=== PATIENT | male | born 1965 | race Caucasian/White ===

== ENCOUNTER → 2016-12-21 | Outpatient (CLI) | payer BC, OTHER ==
[~2016-12-21] MED LIST: AUGM875T28 PO; CLON0.2T PO; PRED20TA PO; PROAAER10; RANITAB PO
--- NOTE | 2016-12-21 17:01 | REP ---
Clinical: Streptococcal pharyngitis . Comparison: PA and lateral. Technique: PA and lateral. Findings: The mediastinum and cardiac silhouette are normal. The lung adame are clear and without acute consolidation, effusion, or pneumothorax. The skeletal structures are intact and normal. Impression: 1. No acute cardiopulmonary process. Signed by Mehul Pérez MD 12/21/2016 04:52 P
== END ==
LOC: M LRY 16:41
PROVIDERS: ATTEND Nurse Practitioner Family
DX: J02.0 Streptococcal pharyngitis (principal)

== ENCOUNTER 2016-12-25 02:28 | Emergency (ER) | payer BC, OTHER ==
[~2016-12-25] VITALS: Ht 170.2 cm; Wt 107.0 kg
[2016-12-25] MEDS ORDERED: PROAAER10 (02:43)
[2016-12-25] MEDS ORDERED: AUGM875T28 PO (02:43)
[2016-12-25] MEDS ORDERED: PRED20TA PO (02:43)
[2016-12-25] MEDS ORDERED: RANITAB PO (02:43)
[2016-12-25] MEDS ORDERED: cloNIDine 0.2 MG TAB PO ONE ×2 (05:00→06:15)
[2016-12-25 05:21] LABS: ANION GAP 9 MEQ/L (8-16); BLOOD UREA NITROGEN 25 MG/DL (7-18); CALCIUM LEVEL 8.4 MG/DL (8.5-10.1); CARBON DIOXIDE LEVEL 23 MEQ/L (21-32); CHLORIDE LEVEL 104 MEQ/L (98-107); CREATININE FOR GFR 1.28 MG/DL (0.70-1.30); GLOMERULAR FILTRATION RATE > 60.0 (>56); GLUCOSE, FASTING 157 MG/DL (70-105); POTASSIUM SERUM 4.9 MEQ/L (3.5-5.1); SODIUM LEVEL 136 MEQ/L (136-145)
[2016-12-25 06:08] VITALS: BP 167/106
[2016-12-25] MEDS ORDERED: CLON0.2T PO (06:13)
[2016-12-25] MEDS ORDERED: NS 500 ML IV ONE (06:45)
[2016-12-25 06:50] VITALS: BP 131/81
--- NOTE | 2016-12-25 08:25 | REP ---
PA and lateral chest: Comparison is 12/21/2016. The lung adame are clear. The cardiac size is normal The fady, mediastinum, and bony thorax are unremarkable. Impression: Negative PA and lateral chest. There is no interval change. Signed by Nitin Almonte MD 12/25/2016 08:15 A
== END 2016-12-25 06:56 | disposition home or self-care (01) ==
LOC: M ED 02:28
DX: I10 Essential (primary) hypertension (principal); Z79.899 Other long term (current) drug therapy

== ENCOUNTER → 2016-12-31 | Outpatient (REF) | payer OTHER ==
[2016-12-31 21:21] LABS: MEAN CORPUSCULAR HEMOGLOBIN 28.4 pg (27.0-33.0); MEAN CORPUSCULAR HGB CONC 32.6 g/dl (32.0-36.5); MEAN CORPUSCULAR VOLUME 87.2 fl (80.0-96.0); RED CELL DISTRIBUTION WIDTH 13.5 % (11.5-14.5); WHITE BLOOD COUNT 9.5 10^3/uL (4.0-10.0)
[2016-12-31 21:51] LABS: CHOLESTEROL LEVEL 217 MG/DL (<200); FREE T4 0.88 NG/DL (0.76-1.46); TRIGLYCERIDES LEVEL 497 MG/DL (<150)
== END ==
LOC: M SFHCLERA 16:30
PROVIDERS: ATTEND Family Medicine
DX: R06.02 Shortness of breath (principal); R03.0 Elevated blood-pressure reading, without diagnosis of hypertension

== ENCOUNTER 2017-04-11 11:03 | Day surgery (SDC) | payer BC, OTHER ==
[2017-04-11] MEDS: NS 1,000 ML IV (11:45)
[2017-04-11] MEDS ORDERED: PROPOFOL 200 MG/20 ML VIAL As Ordered (13:04)
== END 2017-04-11 14:20 | disposition home or self-care (01) ==
LOC: M OPP 11:03
DX: Z12.11 Encounter for screening for malignant neoplasm of colon (principal); D12.2 Benign neoplasm of ascending colon; D12.5 Benign neoplasm of sigmoid colon; K62.1 Rectal polyp; K64.8 Other hemorrhoids; K57.30 Diverticulosis of large intestine without perforation or abscess without bleeding; I10 Essential (primary) hypertension; E78.5 Hyperlipidemia, unspecified; K21.9 Gastro-esophageal reflux disease without esophagitis; R06.02 Shortness of breath; R06.83 Snoring; Z79.82 Long term (current) use of aspirin; Z79.899 Other long term (current) drug therapy; Z85.118 Personal history of other malignant neoplasm of bronchus and lung
CPT/HCPCS: 45385

== ENCOUNTER → 2017-07-23 | Outpatient (CLI) | payer BC, OTHER | LOC: M RAD 15:33 | DX: H90.6 Mixed conductive and sensorineural hearing loss, bilateral (principal); R91.8 Other nonspecific abnormal finding of lung field | CPT/HCPCS: 70480 ==

== ENCOUNTER → 2017-09-25 | Outpatient (REF) | payer OTHER ==
[2017-09-25 16:32] LABS: HEMATOCRIT 48.4 % (42.0-52.0); HEMOGLOBIN 15.8 g/dl (13.5-17.5); MEAN CORPUSCULAR HEMOGLOBIN 28.8 pg (27.0-33.0); MEAN CORPUSCULAR HGB CONC 32.6 g/dl (32.0-36.5); MEAN CORPUSCULAR VOLUME 88.3 fl (80.0-96.0); PLATELET COUNT, AUTOMATED 232 10^3/uL (150-450); RED BLOOD COUNT 5.48 10^6/uL (4.30-6.10); RED CELL DISTRIBUTION WIDTH 13.6 % (11.5-14.5); WHITE BLOOD COUNT 8.2 10^3/uL (4.0-10.0)
[2017-09-25 16:47] LABS: ESTIMATED AVERAGE GLUCOSE 134 MG/DL (60-110); HEMOGLOBIN A1c 6.3 %
[2017-09-25 16:50] LABS: CHOLESTEROL LEVEL 160 MG/DL (<200); CHOLESTEROL RISK RATIO 4.705 (<5); HDL CHOLESTEROL 34 MG/DL (>40); LDL CHOLESTEROL 57.8 MG/DL (<100); NON-HDL-C 126 MG/DL; TRIGLYCERIDES LEVEL 341 MG/DL (<150)
== END ==
LOC: M SFHCLERA 11:34
DX: R73.01 Impaired fasting glucose (principal); E78.00 Pure hypercholesterolemia, unspecified; R06.09 Other forms of dyspnea

== ENCOUNTER → 2018-06-11 | Outpatient (REF) | payer OTHER ==
[~2018-06-11] MED LIST changes: +ASPI1TAB PO; +LOVA20TA2 PO; +METO25TA4 PO
[2018-06-11 12:53] LABS: HEMOGLOBIN A1c 6.3 %
[2018-06-11 13:20] LABS: ALBUMIN 4.1 GM/DL (3.2-5.2); BILIRUBIN,TOTAL 0.6 MG/DL (0.2-1.0); CALCIUM LEVEL 8.9 MG/DL (8.5-10.1); CREATININE FOR GFR 1.35 MG/DL (0.70-1.30); GLOMERULAR FILTRATION RATE 58.9 (>56); POTASSIUM SERUM 4.3 MEQ/L (3.5-5.1); TOTAL PROTEIN 7.4 GM/DL (6.4-8.2)
== END ==
LOC: M SFHCLERA 09:15
PROVIDERS: ATTEND Family Medicine
DX: I10 Essential (primary) hypertension (principal); R73.01 Impaired fasting glucose; E78.00 Pure hypercholesterolemia, unspecified

== ENCOUNTER → 2018-08-11 | Outpatient (REF) | payer OTHER ==
[~2018-08-11] MED LIST changes: -ASPI1TAB PO; +ASPI81TA26 PO
[2018-08-11 11:39] LABS: APPEARANCE, URINE HAZY (CLEAR); BACTERIA, URINE AUTO NEGATIVE (NEGATIVE); BILIRUBIN, URINE AUTO NEGATIVE (NEGATIVE); BLOOD, URINE BLOOD NEGATIVE (NEGATIVE); CALCIUM OXALATE CRYSTALS SMALL; COLOR, URINE YELLOW (YELLOW); GLUCOSE, URINE (UA) AUTO NEGATIVE (NEGATIVE); KETONE, URINE AUTO NEGATIVE (NEGATIVE); LEUKOCYTE ESTERASE, URINE AUTO NEGATIVE (NEGATIVE); MUCUS, URINE SMALL (NEGATIVE); NITRITE, URINE AUTO NEGATIVE (NEGATIVE); PROTEIN, URINE AUTO NEGATIVE (NEGATIVE); RBC, URINE AUTO 0 /HPF (0-3); SPECIFIC GRAVITY URINE AUTO 1.027 (1.002-1.035); SQUAMOUS EPITHELIAL CELL UR AU 0 /HPF (0-6); UROBILINOGEN, URINE AUTO 0.2 mg/dL (0.0-2.0); WBC, URINE AUTO 0 /HPF (0-3)
[2018-08-11 11:41] LABS: CALCIUM LEVEL 9.2 MG/DL (8.5-10.1); CREATININE FOR GFR 1.36 MG/DL (0.70-1.30); GLOMERULAR FILTRATION RATE 58.4 (>56); POTASSIUM SERUM 4.7 MEQ/L (3.5-5.1)
== END ==
LOC: M SFHCLERA 08:14
PROVIDERS: ATTEND Family Medicine
DX: R79.89 Other specified abnormal findings of blood chemistry (principal)

== ENCOUNTER → 2018-08-14 | Outpatient (CLI) | payer BC, OTHER ==
--- NOTE | 2018-08-14 20:19 | REP ---
CT abdomen and pelvis without IV or oral contrast: History: Elevated serum creatinine. Left-sided flank pain. Rule out nephrolithiasis. Findings: Preliminary digital leasing property manager radiograph shows a normal bowel gas pattern. There is a 5 mm noncalcified pulmonary nodule in the left lower lobe on page 7 of 48 in series 204 of today's study. There is linear fibrosis in the lingula and in the right middle lobe. The nodule merits follow-up. There is mild fatty infiltration of the liver. No adrenal lesion is seen. No pancreatic or gallbladder abnormality is observed. There is no evidence of intrarenal calculus. There are small parapelvic cysts bilaterally. There is a cortical cyst in the upper pole of the left kidney measuring 2.1 cm in greatest diameter. No bladder calculus is seen. There are one or two dystrophic calcifications in the prostate gland. Seminal vesicles are unremarkable. There is pancolonic diverticulosis without CT evidence of diverticulitis. A normal appendix is seen. No retroperitoneal mass or adenopathy is seen. No abdominal wall defect is seen. Bone window settings show no bony destructive lesion. Impression: Small parapelvic and renal cortical cysts bilaterally. No hydronephrosis or calculus disease is seen in either kidney. Pancolonic diverticulosis. Dystrophic prostate calcifications. There is a 5 mm noncalcified pulmonary nodule in the left lower lobe. Consider chest CT for further evaluation. Followup may be warranted. Electronically Signed by Justin Sellers MD 08/14/2018 08:35 P
== END ==
LOC: M RAD 17:31
PROVIDERS: ATTEND Family Medicine
DX: N28.1 Cyst of kidney, acquired (principal); K57.90 Diverticulosis of intestine, part unspecified, without perforation or abscess without bleeding; N40.2 Nodular prostate without lower urinary tract symptoms; R91.1 Solitary pulmonary nodule

== ENCOUNTER → 2018-08-26 | Outpatient (REF) | payer OTHER ==
[2018-08-26 20:30] LABS: CALCIUM LEVEL 9.3 MG/DL (8.5-10.1); CREATININE FOR GFR 1.4 MG/DL (0.70-1.30); GLOMERULAR FILTRATION RATE 56.4 (>56); POTASSIUM SERUM 4.6 MEQ/L (3.5-5.1)
== END ==
LOC: M SFHCLERA 15:10
PROVIDERS: ATTEND Family Medicine
DX: R79.89 Other specified abnormal findings of blood chemistry (principal)

== ENCOUNTER → 2018-09-07 | Outpatient (CLI) | payer BC, OTHER ==
[~2018-09-07] MED LIST changes: +ISOVUE-370 76% 100ML VIAL (Q9967) As Ordered ONE
--- NOTE | 2018-09-08 08:49 | REP ---
Clinical: Left lower lobe pulmonary nodule. Technique: Axial contrast enhanced images from the lung bases to the thoracic inlet with coronal and sagittal re-formations using 100 ml Isovue 370 intravenous contrast material. Comparison: Abdominal CT dated 08/14/2018. Findings: 5 mm noncalcified nodule in the posterior left lower lobe (image 59) is again identified and unchanged. The lung adame are otherwise well aerated and essentially clear. No further consolidation, nodule or mass lesion appreciated. No pleural effusion. No pneumothorax. Tracheobronchial tree is patent. No mediastinal, hilar or axillary adenopathy is appreciated. The mediastinum demonstrates normal thoracic aorta, pulmonary vasculature and heart/pericardium. Mild atherosclerotic changes to the coronary arteries suggested. No pericardial effusion. Musculoskeletal structures are intact. Impression: Solitary 5 mm noncalcified nodule in the left lower lobe. No further acute mediastinal or pleuroparenchymal process appreciated. Consider 1 year follow-up. Electronically Signed by Mehul Pérez MD 09/08/2018 08:40 A
== END ==
LOC: M RAD 16:03
PROVIDERS: ATTEND Family Medicine
DX: R91.1 Solitary pulmonary nodule (principal)
CPT/HCPCS: 71260; Q9967

== ENCOUNTER → 2018-12-02 | Outpatient (CLI) | payer BC, OTHER ==
[~2018-12-02] MED LIST changes: -ISOVUE-370 76% 100ML VIAL (Q9967) As Ordered ONE
--- NOTE | 2018-12-10 13:58 | REP ---
Right elbow for views: On one oblique view at the base of the ulnar coronoid process. This could represent a fracture or an unfused coronoid process. There is no joint effusion or hemarthrosis. Mineralization and joint spaces otherwise are unremarkable. There are no calcifications or foreign bodies. Impression: Fracture at the base of the ulnar coronoid process on one-view versus nonfused coronoid process. Correlate with clinical point tenderness. There is no hemarthrosis. Otherwise, negative right elbow. Electronically Signed by Nitin Almonte MD 12/02/2018 12:03 P
--- NOTE | 2018-12-10 14:01 | REP ---
Right arm for views : There is no fracture or dislocation. Mineralization and joint spaces are normal. There are no calcifications or foreign bodies. Impression: Negative right arm Please refer to the elbow series concerning the proximal ulna coronoid process . Electronically Signed by Nitin Almonte MD 12/02/2018 12:05 P
--- NOTE | 2018-12-10 14:04 | REP ---
Right wrist four views: There is internal fixation of the index finger metacarpal and at the base of the thumb metacarpal. There is no acute fracture or dislocation. Mineralization and joint spaces are normal. Impression: Internal fixation, otherwise negative right wrist. Electronically Signed by Nitin Almonte MD 12/02/2018 12:06 P
== END ==
LOC: M LRY 11:28
PROVIDERS: ATTEND Nurse Practitioner Family
DX: M25.521 Pain in right elbow (principal); S59.911A Unspecified injury of right forearm, initial encounter; S69.91XA Unspecified injury of right wrist, hand and finger(s), initial encounter; X58.XXXA Exposure to other specified factors, initial encounter; Y92.89 Other specified places as the place of occurrence of the external cause

== ENCOUNTER → 2018-12-02 | Outpatient (CLI) | payer OTHER | LOC: M LRY 11:24 | PROVIDERS: ATTEND Nurse Practitioner Family | DX: Z53.9 Procedure and treatment not carried out, unspecified reason (principal); M25.521 Pain in right elbow; S59.911A Unspecified injury of right forearm, initial encounter; S69.91XA Unspecified injury of right wrist, hand and finger(s), initial encounter ==

== ENCOUNTER → 2018-12-14 | Outpatient (REF) | payer OTHER ==
[2018-12-14 12:44] LABS: BLOOD UREA NITROGEN 18 MG/DL (7-18); CALCIUM LEVEL 9.1 MG/DL (8.5-10.1); CARBON DIOXIDE LEVEL 27 MEQ/L (21-32); CHLORIDE LEVEL 109 MEQ/L (98-107); CREATININE FOR GFR 1.27 MG/DL (0.70-1.30); GLOMERULAR FILTRATION RATE > 60.0 (>56); GLUCOSE, FASTING 122 MG/DL (70-100); POTASSIUM SERUM 4.7 MEQ/L (3.5-5.1); SODIUM LEVEL 141 MEQ/L (136-145)
[2018-12-14 13:03] LABS: HEMOGLOBIN A1c 6.2 %
[2018-12-14 13:32] LABS: MAU/CREAT RATIO 16.1 MCG/MG (0.0-30.0)
== END ==
LOC: M SFHCLERA 08:33
PROVIDERS: ATTEND Family Medicine
DX: R73.01 Impaired fasting glucose (principal); R79.89 Other specified abnormal findings of blood chemistry

== ENCOUNTER → 2018-12-17 | Outpatient (CLI) | payer BC, OTHER ==
[~2018-12-17] MED LIST changes: +LISI10TA15 PO; +NAPR-885 PO; +ZANT150T40 PO
--- NOTE | 2018-12-17 11:16 | REP ---
MRI RIGHT ELBOW WITHOUT CONTRAST: HISTORY: Pain in the right elbow. Comparison radiographs December 02, 2018. TECHNIQUE: Axial, coronal and sagittal imaging planes were utilized. T1- and T2-weighted scans were obtained with and without fat saturation in the usual fashion. MRI FINDINGS: Cortical and medullary bone signal intensity are normal. There is no evidence of acute fracture. There is an accessory ossicle or old nondisplaced and well corticated fracture fragment at the coronoid process of the proximal ulna as seen on the radiographs. This does not appear to be an acute injury. However, there is complete disruption of the biceps tendon with retraction of the tendon approximately 2.3 cm from its distal attachment on the radial styloid. There is considerable surrounding edema. The brachialis tendon appears to be intact. Medial and lateral collateral ligaments appear intact. There is no evidence of significant elbow joint effusion. Triceps tendon is unremarkable. IMPRESSION: 1. Complete distal biceps tendon tear with approximately 2.3 cm of tendon retraction. 2. Accessory ossicle versus old corticated chip fracture of the coronoid process. No acute bony injury seen. Electronically Signed by Justin Sellers MD 12/17/2018 01:00 P
== END ==
LOC: M RAD 09:21
PROVIDERS: ATTEND Orthopaedic Surgery Sports Medicine
DX: S46.211A Strain of muscle, fascia and tendon of other parts of biceps, right arm, initial encounter (principal); S59.901A Unspecified injury of right elbow, initial encounter; Y92.9 Unspecified place or not applicable; Y93.9 Activity, unspecified

== ENCOUNTER → 2018-12-23 | Outpatient (CLI) | payer BC, OTHER ==
[2018-12-23 11:49] LABS: HEMATOCRIT 48.1 % (42.0-52.0); HEMOGLOBIN 16.2 g/dl (13.5-17.5); MEAN CORPUSCULAR HGB CONC 33.7 g/dl (32.0-36.5); MEAN CORPUSCULAR VOLUME 89.1 fl (80.0-96.0); PLATELET COUNT, AUTOMATED 221 10^3/uL (150-450); WHITE BLOOD COUNT 7.6 10^3/uL (4.0-10.0)
[2018-12-23 11:59] LABS: INR 0.97; PROTHROMBIN TIME 12.6 SECONDS (11.8-14.0)
[2018-12-23 12:12] LABS: POTASSIUM SERUM 4.6 MEQ/L (3.5-5.1)
== END ==
LOC: M LAB 10:44
PROVIDERS: ATTEND Orthopaedic Surgery Sports Medicine
DX: M25.521 Pain in right elbow (principal)

== ENCOUNTER 2018-12-25 07:05 | Day surgery (SDC) | payer BC, OTHER ==
[~2018-12-25] VITALS: Ht 172.7 cm; Wt 108.9 kg
[~2018-12-25 07:05] MED LIST changes: +LIDOCAINE 1% MDV 20ML VIAL SQ PRN; +LR 1,000 ML IV ONE; +ceFAZolin SOD 2 GM in IV 1 EA IV ONE
[2018-12-25] MEDS ORDERED: fentaNYL 100 MCG/2 ML INJECTION (J3010) As Ordered ONE ×2 (07:52→08:51)
[2018-12-25] MEDS ORDERED: MIDAZOLAM INJ 2 MG/2 ML VIAL (J2250) As Ordered ONE (07:52)
[2018-12-25] MEDS ORDERED: dexameTHASONE 4 MG/ML 1ML VIAL (J1100) As Ordered ONE (08:51)
[2018-12-25] MEDS ORDERED: ONDANSETRON 4MG/2ML VIAL (J2405) As Ordered ONE (08:51)
[2018-12-25] MEDS ORDERED: LIDOCAINE 2% INJ 100 MG/5 ML SDV (FOR ANES.) As Ordered ONE (08:51)
[2018-12-25] MEDS ORDERED: PROPOFOL 200 MG/20 ML VIAL As Ordered ONE (08:51)
[2018-12-25] MEDS ORDERED: BUPIVACAINE/EPIN 0.25% 30 ML VIAL As Ordered ONE (09:44)
[2018-12-25] MEDS: fentaNYL 100 MCG/2 ML INJECTION (J3010) IV SCH ×2 (09:49→09:51)
[2018-12-25] MEDS ORDERED: MIDAZOLAM INJ 2 MG/2 ML VIAL (J2250) IV ONE (10:30)
[2018-12-25] MEDS ORDERED: ePHEDrine SULFATE 25 MG/5 ML(5MG/ML) SYRINGE As Ordered ONE ×2 (10:35→11:39)
[2018-12-25] MEDS ORDERED: ROCURONIUM BROMIDE 50 MG/5 ML VIAL As Ordered ONE (10:35)
[2018-12-25] MEDS ORDERED: KETOROLAC 60 MG/2 ML VIAL (J1885) As Ordered ONE (11:05)
[2018-12-25] MEDS ORDERED: SUGAMMADEX SODIUM 500 MG/5 ML VIAL (BRIDION) As Ordered ONE (11:29)
[2018-12-25] MEDS ORDERED: ONDANSETRON 4MG/2ML VIAL (J2405) IV PRN (12:15)
[2018-12-25] MEDS ORDERED: LR 1,000 ML IV SCH ×2 (12:15)
[2018-12-25] MEDS ORDERED: PERCOCET 5MG/325MG TAB PO PRN (12:15)
[2018-12-25] MEDS ORDERED: fentaNYL 100 MCG/2 ML INJECTION (J3010) IV PRN (12:15)
[2018-12-25 13:50] VITALS: BP 129/69
--- NOTE | 2018-12-26 10:50 | ECGEPIP ---
[facility] Test Date: 2018-12-25 Pat Name: RICHAR PRADHAN Department: Room: - Gender: Male Manager Brand: [id number] : [id number] Requested By: Aj Albert Order Number: [id number] Reading MD: Artur Alegria Measurements Intervals [place] Rate: 59 P: 46 DC: 146 QRS: 1 QRSD: 80 T: 9 QT: 387 QTc: 383 Interpretive Statements SINUS BRADYCARDIA Comparison tracing not on file Electronically Signed on 12-26-2018 10:49:46 EDT by Artur Alegria
--- NOTE | 2018-12-28 14:57 | RO ---
DATE OF PROCEDURE: 12/25/2018 PREOPERATIVE DIAGNOSIS: Right distal biceps tear. POSTOPERATIVE DIAGNOSIS: Right distal biceps tear. PLANNED PROCEDURE: Right distal biceps repair. PROCEDURE PERFORMED: Right distal biceps repair. OPERATIVE SURGEON: Dr. Kulwant Moreno DUMP GRADER: Kemar Sanchez MD ANESTHESIA: General anesthetic plus block. OPERATIVE PREAMBLE: This 53-year-old man had a right distal biceps tendon tear. He was lifting a heavy box. This was confirmed on clinical exam and MRI. He was sent to me already 2 weeks out. I expedited his MRI and surgery. We talked about the pros and cons, risks, and benefits of going ahead with right distal biceps tendon repair, single incision technique. I reiterated these risks in preoperative holding and marked the right upper extremity. He wished to proceed. DESCRIPTION OF PROCEDURE: Patient was administered a preoperative block in preoperative holding. Patient was brought to the operating theater, placed supine on the operating room table, and turned to the right side. General anesthesia was induced. 2 grams IV Ancef was administered. Right upper extremity was prepped and draped in the usual sterile fashion. Prep solution was allowed to thoroughly dry. Preoperative time-out was performed to confirm the patient, the site, and the surgery. The limb was exsanguinated with a sterile 4-inch Esmarch bandage. Limb was elevated. Sterile tourniquet was applied to the right upper extremity. This was inflated to 250 mmHg. I began by infiltrating 10 mL 0.25% Marcaine with 1:100,000 epinephrine in a transverse fashion over the proximal aspect of the volar forearm. This was 2 cm distal to the elbow crease. I then made a 2-inch incision transversely through the same area. I dissected down through skin and subcutaneous tissue. I identified the biceps tendon. It was scarred down. Mobilization of the tendon took about 20 minutes. It had only retracted about 2 cm but was quite scarred down already. Tendon then was cleaned of any scar tissue and hypertrophic tendon. I then used the straight needle FiberLoop whipstitch technique Arthrex kit to place six whipstitches in the tendon end. The last whipstitch was proximally locked and brought out through the middle of the tendon end. Straight needle was cut off. Ends of the suture were then passed through the distal biceps button in the usual fashion for a later tension slide technique. I then turned my attention distally. Using the previously made tunnel, I placed a Hohmann's and then used [place] retractors to visualize down to the radial tuberosity. I cleared this away of any soft tissue and remaining small amounts of tendon attachment. I half re-supinated the arm. Identified the tuberosity. I passed the spade tip guidepin bicortically at this point with the arm slightly flex and in as much supination as was possible. Tendon measured approximately 8 mm. This was after fashioning the distal end of the tendon into a more bullet-shaped tip. I then overdrilled the proximal cortex with a #8 mm drill. It was thoroughly irrigated of all bone dust and suctioned away. Biceps button was then passed bicortically to far cortex and flipped. Using the tension slide technique, the tendon was delivered into the hole appropriately with the arm in about 30 degrees of flexion. It went in nicely and docked into the tunnel quite easily. I then used the 7 mm x 10 mm Arthrex interference screw and seated this appropriately. Suture ends were then passed using a free Sutherland needle up through the tendon and tied over top for a triple fixation. Suture ends were cut short with a scalpel to avoid any fraying of the suture ends. Tendon repair quality was good. The wound was thoroughly irrigated. Subcutaneous tissue was closed with interrupted #3-0 Vicryl sutures and skin with running #4-0 Monocryl. Skin was cleaned with wet and dry dressing followed by application of Steri-Strips, Adaptic, 4 x 8 gauze, and ABD dressings overwrapped with sterile 6-inch Clark bandage. He was then placed into a hinged elbow brace locked at 90 degrees with a sling. Tourniquet was taken down prior to the end of the case, and wound was dry. Estimated blood loss was 10 mL. All sponge, needle, and instrument counts were correct at the end of the case. No complications. The patient was woken up from the general anesthetic, transferred off the operating table, and taken to the postanesthetic care unit in stable condition. PLAN: For the patient to be discharged home according to day surgery criteria. Prescription has been sent in electronically to their pharmacy of choice. Followup in my office in 1-2 weeks or earlier if there are any concerns.
== END 2018-12-25 13:55 | disposition home or self-care (01) ==
LOC: M SDC 07:05
PROVIDERS: ATTEND Orthopaedic Surgery Sports Medicine
DX: S46.211A Strain of muscle, fascia and tendon of other parts of biceps, right arm, initial encounter (principal); Y92.89 Other specified places as the place of occurrence of the external cause; Y93.9 Activity, unspecified; Y99.9 Unspecified external cause status; I10 Essential (primary) hypertension; E78.5 Hyperlipidemia, unspecified; K21.9 Gastro-esophageal reflux disease without esophagitis; F17.220 Nicotine dependence, chewing tobacco, uncomplicated; Z79.82 Long term (current) use of aspirin; Z79.899 Other long term (current) drug therapy
CPT/HCPCS: 24342; 64415; 93005; C1713; J0690; J1100; J1885; J2250; J2405; J3010

== ENCOUNTER → 2021-01-16 | Outpatient (CLI) | payer BC, OTHER ==
[~2021-01-16] MED LIST changes: +ISOVUE-370 76% 100ML VIAL As Ordered ONE; -LIDOCAINE 1% MDV 20ML VIAL SQ PRN; -LR 1,000 ML IV ONE; -ceFAZolin SOD 2 GM in IV 1 EA IV ONE
--- NOTE | 2021-01-16 15:19 | REP ---
INDICATION: LUNG NODULE COMPARISON: 09/07/2018 the latest prior TECHNIQUE: Standard helical technique after the intravenous administration of 100 cc Isovue 370. FINDINGS: The mediastinum and pulmonary fady are again seen to be within normal limits and unchanged. The imaged upper abdomen is stable. There is a simple left renal cyst status quo. The imaged osseous structures are stable and intact. Evaluation of the lung adame shows the left lower lobe nodule seen previously to of completely calcified. No new abnormal nodules, masses, or opacities have developed. IMPRESSION: There is a benign calcified granuloma in the left lower lobe. There is no evidence of acute disease. Findings as described above. <Electronically signed by Cristopher Martines > 01/16/21 1731
== END ==
LOC: M RAD 14:22
PROVIDERS: ATTEND Family Medicine
DX: R91.1 Solitary pulmonary nodule (principal)
CPT/HCPCS: 71260; Q9967

== ENCOUNTER → 2021-05-05 | Outpatient (CLI) | payer BC, OTHER ==
[~2021-05-05] MED LIST changes: +FAMO10TA50 PO; -ISOVUE-370 76% 100ML VIAL As Ordered ONE; -LISI10TA15 PO; +LISI10TA22 PO; +LISI10TA24 PO; +METO50TA7 PO
== END ==
LOC: M LABSMTC 10:23
PROVIDERS: ATTEND Anesthesiology
DX: Z01.812 Encounter for preprocedural laboratory examination (principal); Z11.52 Encounter for screening for COVID-19

== ENCOUNTER 2021-05-10 07:48 | Day surgery (SDC) | payer BC, OTHER ==
[~2021-05-10] VITALS: Ht 170.2 cm; Wt 108.4 kg
[~2021-05-10 07:48] MED LIST changes: +NS 1,000 ML IV ONE
[2021-05-10] MEDS ORDERED: propofoL 200 MG/20 ML VIAL As Ordered ONE ×2 (09:31→09:49)
[2021-05-10] MEDS ORDERED: LIDOCAINE 2% 100MG/5ML SDV (FOR ANES.) As Ordered ONE (09:31)
[2021-05-10] MEDS ORDERED: PHENYLephrine 500MCG 5ML (100MCG/ML) SYRINGE As Ordered ONE (09:49)
[2021-05-10 10:38] VITALS: BP 102/59
== END 2021-05-10 10:42 | disposition home or self-care (01) ==
LOC: M OPP 07:48
PROVIDERS: ATTEND Internal Medicine Gastroenterology
DX: Z12.11 Encounter for screening for malignant neoplasm of colon (principal); Z86.010 Personal history of colon polyps; D12.4 Benign neoplasm of descending colon; D12.5 Benign neoplasm of sigmoid colon; K57.30 Diverticulosis of large intestine without perforation or abscess without bleeding; K64.8 Other hemorrhoids; Z79.82 Long term (current) use of aspirin; Z79.899 Other long term (current) drug therapy; F17.210 Nicotine dependence, cigarettes, uncomplicated
CPT/HCPCS: 45385; 88305; J2370

== ENCOUNTER 2024-12-01 08:28 | Emergency (ER) | payer BC ==
[~2024-12-01] VITALS: Ht 170.2 cm; Wt 111.6 kg
[~2024-12-01 08:28] MED LIST changes: +IBUP600T42 PO; +LEVO1TAB40 PO; -NS 1,000 ML IV ONE
[2024-12-01] MEDS ORDERED: LOVA40TA PO (08:37)
[2024-12-01] MEDS ORDERED: METO100T5 PO (08:37)
[2024-12-01 10:59] VITALS: BP 150/76; TEMP 98.9; O2SAT 96
[2024-12-01 11:10] LABS: KETONE, URINE AUTO RFX NEGATIVE (NEGATIVE); LEUKOCYTE ESTERASE UR AUTO RFX 3+ (NEGATIVE); MUCUS, URINE RFX SMALL (NEGATIVE); NITRITE, URINE AUTO RFX NEGATIVE (NEGATIVE); RBC, URINE AUTO RFX 0 /HPF (0-3); SQUAM EPITHELIAL CELL UR AURFX 1 /HPF (0-6); WBC, URINE AUTO RFX 117 /HPF (0-3)
[2024-12-01] MEDS ORDERED: LEVO1TAB39 PO (11:20)
[2024-12-01 12:25] LABS: Trichomonas vaginalis (AMP) NOT DETECTED (NEGATIVE)
[2024-12-01 12:49] LABS: GC DNA AMPLIFICATION NEGATIVE (NEGATIVE)
== END 2024-12-01 11:30 | disposition home or self-care (01) ==
LOC: M ED 08:28
DX: N45.1 Epididymitis (principal); I10 Essential (primary) hypertension; Z79.2 Long term (current) use of antibiotics; Z79.899 Other long term (current) drug therapy

== ENCOUNTER → 2025-01-19 | Outpatient (REF) | payer BC ==
[~2025-01-19] MED LIST changes: +LEVO1TAB39 PO; +LOVA40TA PO; +METO100T5 PO
[2025-01-19 17:39] LABS: APPEARANCE, URINE CLEAR (CLEAR); BACTERIA, URINE AUTO NEGATIVE (NEGATIVE); BILIRUBIN, URINE AUTO NEGATIVE (NEGATIVE); BLOOD, URINE BLOOD NEGATIVE (NEGATIVE); GLUCOSE, URINE (UA) AUTO NEGATIVE (NEGATIVE); KETONE, URINE AUTO NEGATIVE (NEGATIVE); LEUKOCYTE ESTERASE, URINE AUTO NEGATIVE (NEGATIVE); MUCUS, URINE SMALL (NEGATIVE); NITRITE, URINE AUTO NEGATIVE (NEGATIVE); PROTEIN, URINE AUTO 1+ mg/dL (NEGATIVE); RBC, URINE AUTO 0 /HPF (0-3); SPECIFIC GRAVITY URINE AUTO 1.024 (1.002-1.035); SQUAMOUS EPITHELIAL CELL UR AU 0 /HPF (0-6); UROBILINOGEN, URINE AUTO 0.2 mg/dL (0.0-2.0); WBC, URINE AUTO 1 /HPF (0-3)
== END ==
LOC: M SMT 16:53
PROVIDERS: ATTEND Nurse Practitioner Family
DX: N39.0 Urinary tract infection, site not specified (principal)